=== PATIENT | male | born 1975 | race Caucasian/White ===

== ENCOUNTER 2018-02-15 10:56 | Day surgery (SDC) | payer MEDICAID ==
[2018-02-15] MEDS ORDERED: MIDAZOLAM 2 MG/2 ML INJ ONE (13:13)
[2018-02-15] MEDS ORDERED: ONDANSETRON HCL INJ/PF 4 MG/2 ML SDV ONE (13:13)
[2018-02-15] MEDS ORDERED: FENTANYL CITRATE INJ/PF 250 MCG/5 ML AMPULE ONE (13:13)
[2018-02-15] MEDS ORDERED: DEXAMETHASONE SOD PHOSPHATE INJ 4 MG/1 ML VIAL ONE (13:13)
[2018-02-15] MEDS ORDERED: PROPOFOL INJ 200 MG/20 ML VIAL IV ONE (13:14)
[2018-02-15] MEDS ORDERED: ACETAMINOPHEN 1,000 MG/100 ML RTUPB IV ONE (13:14)
[2018-02-15] MEDS ORDERED: PHENYLEPHRINE HCL 0.25% NASAL SPRAY 15 ML ONE (13:18)
[2018-02-15] MEDS ORDERED: OXYCODONE-ACETAMINOPHEN 5-325 MG TABLET PO PRN ×3 (14:02→15:48)
[2018-02-15] MEDS ORDERED: DIPHENHYDRAMINE HCL 50 MG/ML VIAL IV PRN (14:02)
[2018-02-15] MEDS ORDERED: FENTANYL CITRATE INJ/PF 100 MCG/2 ML AMPUL IV PRN ×3 (14:02)
[2018-02-15] MEDS ORDERED: ONDANSETRON HCL INJ/PF 4 MG/2 ML SDV IV PRN ×2 (14:02→15:17)
[2018-02-15] MEDS ORDERED: MEPERIDINE HCL/PF INJ 25 MG/1 ML DISP.SYRIN IV PRN (14:02)
[2018-02-15] MEDS ORDERED: MORPHINE SULFATE 10 MG/ML INJ IV PRN (14:02)
[2018-02-15] MEDS ORDERED: PROMETHAZINE HCL INJ 25 MG/1 ML VIAL IV PRN ×2 (14:02)
[2018-02-15] MEDS ORDERED: BUPIVACAINE HCL 0.5%/EPI 1:200000 INJ 1.8 ML CARTRIDGE ONE (14:11)
[2018-02-15] MEDS ORDERED: LIDOCAINE 2%/EPINEPHRINE INJ 1.7 ML CARTRIDGE ONE (14:11)
[2018-02-15] MEDS ORDERED: DEXMEDETOMIDINE INJ 80 MCG/20 ML VIAL IV ONE (14:25)
--- NOTE | 2018-02-15 15:03 | Operative Report ---
Operative Report DATE OF SURGERY: 02/15/18 PREOPERATIVE DIAGNOSIS: non-restrorative maxillary dentition; non-restorative #' s 18,20,29 POSTOPERATIVE DIAGNOSIS: Same as preop OPERATION: Extraction of teeth # 3,6,7,8,9,10,11,13,14,18,20 ,29; alveoloplasty of UL and UR SURGEON: GIN RODRIGUEZ 1ST ACCOUNT COORDINATOR: n/a 2ND [employer] Agent: n/a ANESTHESIA: GA - Nasal Intubation TISSUE REMOVED OR ALTERED: Teeth # 3,6,7,8,9,10,11,13,14,18,20,29 COMPLICATIONS: none ESTIMATED BLOOD LOSS: 20ml INTRAOPERATIVE FINDINGS: Consistent with pre and post op dx PROCEDURE: Patient was taken to [facility]2. Stable vital signs were noted and general anesthesia was induced. The patient we intubated in the right naries without complication. Care of the patient was turned over to the surgical team a throat pack was placed and local anesthetic was given for inferior alveolar nerve blocks bilaterally, posterior superior alveolar nerve blocks bilaterally, greater palatine blocks bilaterally and infiltration blocks in the anterior maxilla and palate. Teeth # 3, 6, 7, 8,9,10,11,13 and 14 were surically extracted and an intersulcular incision was performed to elevate an envelope flap from tooth #3 to tooth #14. Alveoloplasty was performed on UL and UR maxilla with ronguer forceps and bone file. The surgical sites were then irrigated with copious sterile saline. Surgifoam was placed in the anterior maxillary surgical sites extending from tooth #6 to #11. The wound was sutured in a baseball stitch bilaterally. Attention was then turned to the mandibular arch where teeth # 18,20 and 21 were extracted in the standard fashion and the extraction sites irrigation and noted to be free of debri. The throat pack was removed and oral cavity suctioned dry. gauze was knoted and placed and bleeding was well controlled. Care of the patient was returned to anesthesia who woke and extibated him without event. He was transported to the PACU in stable condition.
[2018-02-15] MEDS ORDERED: SUCCINYLCHOLINE CHLORIDE INJ 200 MG/10 ML VIAL ONE (15:47)
[2018-02-15 16:35] VITALS: BP 136/92
== END 2018-02-15 16:37 | disposition home or self-care (01) ==
LOC: OROUT 10:56
PROVIDERS: ATTEND Dentist Oral and Maxillofacial Surgery
DX: K02.9 Dental caries, unspecified (principal); K08.3 Retained dental root; R68.84 Jaw pain; I10 Essential (primary) hypertension; E66.9 Obesity, unspecified; I25.10 Atherosclerotic heart disease of native coronary artery without angina pectoris; E78.5 Hyperlipidemia, unspecified; Z79.82 Long term (current) use of aspirin; Z79.899 Other long term (current) drug therapy; Z68.36 Body mass index [BMI] 36.0-36.9, adult; Z88.6 Allergy status to analgesic agent; Z88.5 Allergy status to narcotic agent
CPT/HCPCS: 36415; 84132; 41899; 41874 ×2; J2250; J3490 ×4; J1100; J3010; J0330; J2405; J2704; J0131; 170

== ENCOUNTER 2019-10-14 00:42 | Emergency (ER) | payer SELFPAY ==
[2019-10-14] MEDS ORDERED: METOCLOPRAMIDE HCL INJ/PF 10 MG/2 ML SDV IV ONE (01:38)
[2019-10-14] MEDS ORDERED: NORMAL SALINE 1000 ML 1,000 ML IV ONE ×2 (01:38→03:19)
--- NOTE | 2019-10-14 01:41 | ER Document Report ---
ED Medical Screen (RME) - General Chief Complaint: Nausea/Vomiting Stated Complaint: NAUSEA/VOMITING Time Seen by Provider: 10/14/19 01:35 Primary Care Provider: ESPERANZA NG PA-C [Primary Care Provider] - Follow up as needed Mode of Arrival: Medic Information source: Patient Notes: Patient is a 44-year-old male presents emergency department with abdominal pain, vomiting and intermittent fevers. Patient reports vomiting has been going on for 9 days. He states he has not sought medical treatment for this. He states that the vomiting is getting more persistent so he decided to come to the emergency department. Patient denies any chest pain or shortness of breath. He does report generalized abdominal pain worse when he vomits. He reports that his fevers have been intermittent. He arrives via EMS, EMS gave him 8 mg of Zofran, he is actively dry heaving in triage at the time of my evaluation. Orders initiated. I have greeted and performed a rapid initial assessment of this patient. A comprehensive ED assessment and evaluation of the patient, analysis of test results and completion of the medical decision making process will be conducted by additional ED providers. I have specifically instructed the patient or family members with the patient to immediately return to any nursing staff should anything change in the patient's condition or with their chief complaint. TRAVEL OUTSIDE OF THE [place] IN LAST 30 DAYS: No - Related Data Allergies/Adverse Reactions: acetaminophen [From Vicodin] Allergy (Severe, Verified 02/14/18 09:54) itching hydrocodone [From Vicodin] Allergy (Severe, Verified 02/14/18 09:54) itching tramadol Allergy (Severe, Verified 02/14/18 09:54) irritated stomach Past Medical History - Social History Chew tobacco use (# tins/day): No Frequency of alcohol use: None Drug Abuse: Marijuana - Past Medical History Cardiac Medical History: Reports: Hx Heart Attack, Hx Hypertension - "borderline" Denies: Hx Coronary Artery Disease Pulmonary Medical History: Denies: Hx Asthma, Hx Bronchitis, Hx COPD, Hx Pneumonia Neurological Medical History: Denies: Hx Cerebrovascular Accident, Hx Seizures Musculoskeltal Medical History: Denies Hx Arthritis - Immunizations Hx Diphtheria, Pertussis, Tetanus Vaccination: Yes Physical Exam - Vital signs Vitals: Temp Pulse Resp BP Pulse Ox 97.8 F 81 18 154/95 H 99 10/14/19 00:56 10/14/19 00:56 10/14/19 00:56 10/14/19 00:56 10/14/19 00:56 Course - Vital Signs Vital signs: Temp Pulse Resp BP Pulse Ox 97.8 F 81 18 154/95 H 99 10/14/19 00:56 10/14/19 00:56 10/14/19 00:56 10/14/19 00:56 10/14/19 00:56 Doctor's Discharge - Discharge Referrals: ESPERANZA NG PA-C [Primary Care Provider] - Follow up as needed
[2019-10-14] MEDS ORDERED: PROMETHAZINE HCL INJ 25 MG/1 ML VIAL IV ONE (02:03)
[2019-10-14 02:09] LABS: HEMATOCRIT 49.3 % (37.9-51.0); HEMOGLOBIN 17.4 g/dL (13.5-17.0); MEAN CORPUSCULAR HEMOGLOBIN 30.4 pg (27.0-33.4); MEAN CORPUSCULAR HGB CONC 35.3 g/dL (32.0-36.0); MEAN CORPUSCULAR VOLUME 86 fl (80-97); PLATELET COUNT 333 10^3/uL (150-450); RED BLOOD COUNT 5.73 10^6/uL (4.35-5.55); RED CELL DISTRIBUTION WIDTH 14.5 % (11.5-14.0); WHITE BLOOD COUNT 25.7 10^3/uL (4.0-10.5)
[2019-10-14 02:22] LABS: ALBUMIN 5.2 g/dL (3.5-5.0); ALKALINE PHOSPHATASE 111 U/L (38-126); ASPARTATE AMINO TRANSFERASE 33 U/L (17-59); BILIRUBIN,DIRECT 0.2 mg/dL (0.0-0.4); BILIRUBIN,TOTAL 1.1 mg/dL (0.2-1.3); BLOOD UREA NITROGEN 16 mg/dL (7-20); CALCIUM 10.5 mg/dL (8.4-10.2); CARBON DIOXIDE 18 mmol/L (22-30); GLUCOSE 120 mg/dL (75-110); POTASSIUM 4.2 mmol/L (3.6-5.0); TOTAL PROTEIN 8.8 g/dL (6.3-8.2)
[2019-10-14 02:27] LABS: CHLORIDE 101 mmol/L (98-107)
[2019-10-14 02:28] LABS: ANION GAP 20 (5-19)
[2019-10-14 02:29] LABS: ABSOLUTE LYMPHOCYTES# (MANUAL) 0.8 10^3/uL (0.5-4.7); ABSOLUTE MONOCYTES # (MANUAL) 0.8 10^3/uL (0.1-1.4); BAND NEUTROPHILS % (MANUAL) 3 % (3-5); BASOPHILS % (MANUAL) 0 % (0-2); EOSINOPHILS % (MANUAL) 2 % (0-6); LYMPHOCYTES % (MANUAL) 3 % (13-45); MONOCYTES % (MANUAL) 3 % (3-13); PLATELET COMMENT ADEQUATE; RBC MORPHOLOGY COMMENT NORMO-CYTIC/CHROMIC; SEGMENTED NEUTROPHILS % (MAN) 89 % (42-78); TOTAL CELLS COUNTED 100
--- NOTE | 2019-10-14 03:36 | ER Document Report ---
Entered by KEVIN PRINCE SCRIBE 10/14/19 0213 Acting as scribe for:JOEL BANSAL IV, MD ED GI/ - General Chief Complaint: Nausea/Vomiting Stated Complaint: NAUSEA/VOMITING Time Seen by Provider: 10/14/19 01:35 Primary Care Provider: ESPERANZA NG PA-C [PHYSICIAN SHEET [employer] DUCT INSTALLER] - Follow up as needed Mode of Arrival: Medic Information source: Patient, Emergency Med Personnel Notes: This 44 year old male patient brought in by EMS presents to the ED today with complaints of nausea and vomiting with associated abdominal pain and intermitt ent fevers for the past x9 days. Patient states that the pain is localizeed to the umbilical region of his abdomen when he vomits. Patient denies diarrhea, stating that he has a normal bowel movement every x2 days. Patient notes that his last meal was about x1 week ago due to not being able to keep any food or liquids down. ED nurse reports that the patient received 8 mg Zofran en route. Patient continued to actively vomit upon arrival despite the Zofran administered en route and the Reglan given in triage. Patient did state that the IV Phenergan helped. Patient reports that he has never experienced these symptoms before. Patient denies chest pain or shortness of breath. TRAVEL OUTSIDE OF THE [place] IN LAST 30 DAYS: No - Related Data Allergies/Adverse Reactions: acetaminophen [From Vicodin] Allergy (Severe, Verified 02/14/18 09:54) itching hydrocodone [From Vicodin] Allergy (Severe, Verified 02/14/18 09:54) itching tramadol Allergy (Severe, Verified 02/14/18 09:54) irritated stomach Past Medical History - General Information source: Patient - Social History Smoking Status: Never Smoker Cigarette use (# per day): No Chew tobacco use (# tins/day): No Smoking Education Provided: No Frequency of alcohol use: None Drug Abuse: Marijuana Family History: Reviewed & Not Pertinent Patient has suicidal ideation: No Patient has homicidal ideation: No - Past Medical History Cardiac Medical History: Reports: Hx Heart Attack, Hx Hypertension - "borderline" Surgical Hx: Negative - Immunizations Hx Diphtheria, Pertussis, Tetanus Vaccination: Yes Review of Systems - Review of Systems Constitutional: See HPI, Fever EENT: No symptoms reported Cardiovascular: See HPI. denies: Chest pain Respiratory: See HPI. denies: Short of breath Gastrointestinal: See HPI, Abdominal pain, Nausea, Vomiting Genitourinary: No symptoms reported Male Genitourinary: No symptoms reported Musculoskeletal: No symptoms reported Skin: No symptoms reported Hematologic/Lymphatic: No symptoms reported Neurological/Psychological: No symptoms reported -: Yes All other systems reviewed and negative Physical Exam - Vital signs Vitals: Temp Pulse Resp BP Pulse Ox 97.8 F 81 18 154/95 H 99 10/14/19 00:56 10/14/19 00:56 10/14/19 00:56 10/14/19 00:56 10/14/19 00:56 - General General appearance: Alert, Other - Nontoxic appearing In distress: None - HEENT Head: Normocephalic, Atraumatic Eyes: Normal Pupils: PERRL - Respiratory Respiratory status: No respiratory distress Chest status: Nontender Breath sounds: Normal Chest palpation: Normal - Cardiovascular Rhythm: Regular Heart sounds: Normal auscultation Murmur: No Friction rub: No Gallop: None auscultated - Abdominal Inspection: Normal Distension: No distension Bowel sounds: Normal Tenderness: Nontender - Abdomen soft Organomegaly: No organomegaly - Back Back: Normal, Nontender - Extremities General upper extremity: Normal inspection General lower extremity: Normal inspection - Neurological Neuro grossly intact: Yes - Psychological Associated symptoms: Normal affect, Normal mood - Skin Skin Temperature: Warm Skin Moisture: Dry Skin Color: Normal Course - Re-evaluation Re-evalutation: 10/14/19 05:45 Results of ED MSE discussed with patient. All questions were answered prior to discharge. Emergency signs and symptoms, reasons to return to the emergency department discussed with patient. - Vital Signs Vital signs: Temp Pulse Resp BP Pulse Ox 97.8 F 81 24 H 165/95 H 98 10/14/19 00:56 10/14/19 00:56 10/14/19 04:01 10/14/19 04:01 10/14/19 05:00 - Laboratory Result Diagrams: 10/14/19 01:48 10/14/19 01:48 Laboratory results interpreted by me: 10/14/19 10/14/19 01:48 01:48 WBC 25.7 H RBC 5.73 H Hgb 17.4 H RDW 14.5 H Seg Neuts % (Manual) 89 H Lymphocytes % (Manual) 3 L Abs Neuts (Manual) 23.6 H Carbon Dioxide 18 L Anion Gap 20 H Glucose 120 H Calcium 10.5 H Total Protein 8.8 H Albumin 5.2 H - Diagnostic Test Radiology reviewed: Reports reviewed Discharge - Discharge Clinical Impression: Nausea and vomiting Qualifiers: Vomiting type: unspecified Vomiting Intractability: non-intractable Qualified Code(s): R11.2 - Nausea with vomiting, unspecified Condition: Good Disposition: HOME, SELF-CARE Instructions: Antinausea Medication ([facility]), Vomiting ([facility]) Additional Instructions: Return to the Emergency Department without delay if any worse. HOME CARE INSTRUCTIONS & INFORMATION: Thank you for choosing us for your medical needs. We hope you're satisfied with the care you received. After you leave, you must properly care for your problem and, at the same time, observe its progress. Any condition can change. Some illnesses can change rapidly over hours or days. If your condition worsens, return to the Emergency Department or see your physician promptly. ABOUT YOUR X-RAYS AND EKG'S: If you had an EKG or X-rays taken, they have been read by the Emergency Physician. The X-rays and EKG's will also be read by a Radiologist or Fine Arts Teacher within 24 hours. If discrepancies are noted, you will be notified by telephone. Please be certain the ED has a correct telephone number & address where you can be reached. Also, realize that some fractures or abnormalities do not show up on initial X-rays. If your symptoms continue, see your physician. ABOUT YOUR LABORATORY TEST: If you had laboratory tests, the results have been reviewed by the Emergency Physician. Some test results (for example cultures) may not be available for several days. You will be contacted if any test result shows you need additional treatment. Please be certain the ED has a correct telephone number and address where you can be reached. ABOUT YOUR MEDICATIONS: You will receive instructions on how to take your medicine on the prescription label you receive. Additional information may be provided by the Pharmacy. If you have questions afterwards, call the ED for clarification or further instructions. Some prescribed medications may cause drowsiness. Do not perform tasks such as driving a car or operating machinery without consulting your Pharmacist. If you feel you need a refill of pain medication, your condition will need re-evaluation. Please do not call for a refill of any medication. ABOUT YOUR SIGNATURE: Signature of this document acknowledges to followin. Understanding that you received emergency treatment and that you may be released before al medical problems are known or treated. Please be certain the ED has a correct phone number & address where you can be reached. 2. Acknowledgement that you will arrange for follow-up care as recommended. 3. Authorization for the Emergency Physician to provide information to your follow-up Physician in order to maximize your care. AT ANY TIME, IF YOUR SYMPTOMS CHANGE SIGNIFICANTLY OR WORSEN OR YOU DEVELOP NEW SYMPTOMS, RETURN TO THE EMERGENCY DEPARTMENT IMMEDIATELY FOR RE-EVALUATION. OUR GOAL IS TO PROVIDE EXCELLENT MEDICAL CARE! WE HOPE THAT WE HAVE MET YOUR EXPECTATIONS DURING YOUR EMERGENCY DEPARTMENT VISIT AND THAT YOU FEEL YOU HAVE RECEIVED EXCELLENT CARE! Prescriptions: Promethazine HCl [Phenergan 25 mg Supp.rect] 1 supp ME Q6HP PRN #12 supp.rect PRN Reason: Promethazine HCl [Phenergan 25 mg Tablet] 1 tab PO Q6H PRN #15 tablet PRN Reason: Referrals: ESPERANZA NG PA-C [PHYSICIAN SHEET METAL DUCT INSTALLER] - Follow up as needed I personally performed the services described in the documentation, reviewed and edited the documentation which was dictated to the scribe in my presence, and it accurately records my words and actions.
[2019-10-14 04:29] VITALS: BP 165/95
--- NOTE | 2019-10-14 05:36 | RADIOLOGY REPORT (SQ) ---
CT abdomen and pelvis with contrast on 10/14/2019 at 4:33 AM CLINICAL INDICATION: Periumbilical abdominal pain, vomiting TECHNIQUE: Multiple axial images are obtained throughout the abdomen and pelvis following the administration of IV contrast, 100 mL of Omnipaque 350 contrast was administered intravenously without complication. This exam was performed according to our departmental dose-optimization program, which includes automated exposure control, adjustment of the mA and/or kV according to patient size and/or use of iterative reconstruction technique. Total DLP is 2356.83 mGy*cm. COMPARISON: None FINDINGS: Abdomen: The lung bases are clear. There is fatty infiltration of the liver. Small right renal cyst is noted. Solid abdominal organs are otherwise unremarkable. There is no abdominal adenopathy. There is no free fluid or free air within the abdomen. The abdominal portion of the GI tract is unremarkable. Pelvis: There is no free fluid in the pelvis. There is no pelvic adenopathy. Pelvic portion of the GI tract including the appendix is unremarkable. Degenerative changes are noted in the spine. IMPRESSION: No acute abnormality.
== END 2019-10-14 06:35 | disposition home or self-care (01) ==
LOC: ER 00:42
DX: R11.2 Nausea with vomiting, unspecified (principal); R10.9 Unspecified abdominal pain; R50.9 Fever, unspecified; Z88.6 Allergy status to analgesic agent; I25.2 Old myocardial infarction
CPT/HCPCS: 99284; 96361; 96374; 96375; 36415; 83690; 83735; 85025; 80053; 74177; J2765; J2550; J7030